=== PATIENT | male | born 1965 | race Caucasian/White ===

== ENCOUNTER 2022-07-27 09:58 | Emergency (ER) | payer BC, OTHER ==
--- NOTE | 2022-07-27 10:01 | ERPHSYRPT ---
- History of Present Illness Time Seen by Provider: 07/27/22 10:01 Historian: patient Exam Limitations: no limitations Physician History: This is a 57-year-old white male who presents with intermittent right flank and right lower back pain for approximately 2 days. At times it is very sharp and intense and other times its a mild achiness but never completely resolved. At the time of arrival, he has an achiness present in the right flank/lower back area. Prior to arrival he had the high intense pain. Patient states that the pain radiates into his right groin at times. He has a history of recurrent urinary tract infections and took Azo product prior to arrival. He has no prior history of ureterolithiasis. He has had no difficulty urinating. Timing/Duration: day(s) (2), intermittent, improved Activities at Onset: none Quality: sharpness, stabbing Abdominal Pain Onset Location: flank (Right flank) Pain Radiation: groin (The right side) Severity of Pain-Max: moderate Severity of Pain-Current: mild Associated Symptoms: denies symptoms Previous symptoms: no prior history Allergies/Adverse Reactions: betamethasone [From Celestone] Allergy (Verified 07/27/22 10:06) Travel Risk - International Travel Have you traveled outside of the country in past 3 weeks: No - Coronavirus Screening Are you exhibiting any of the following symptoms?: No Close contact with a COVID-19 positive Pt in past 14-21 Days: No - Review of Systems Constitutional: No Symptoms Eyes: No Symptoms Ears, Nose, & Throat: No Symptoms Respiratory: No Symptoms Cardiac: No Symptoms Abdominal/Gastrointestinal: No Symptoms Genitourinary Symptoms: Flank Pain (right) Musculoskeletal: No Symptoms Skin: No Symptoms Neurological: No Symptoms Psychological: No Symptoms Endocrine: No Symptoms Hematologic/Lymphatic: No Symptoms Immunological/Allergic: No Symptoms All Other Systems: Reviewed and Negative - Past Medical History Pertinent Past Medical History: Yes - Past Surgical History Past Surgical History: No - Nursing Vital Signs Nursing Vital Signs: Initial Vital Signs Temperature 98 F 07/27/22 10:12 Pulse Rate 97 H 07/27/22 10:12 Respiratory Rate 18 07/27/22 10:12 Blood Pressure 186/104 07/27/22 10:12 O2 Sat by Pulse Oximetry 98 07/27/22 10:12 Pain Scale Pain Intensity 5 - Physical Exam General Appearance: no apparent distress, alert, anxiety Eye Exam: PERRL/EOMI, eyes nml inspection Ears, Nose, Throat Exam: normal ENT inspection, moist mucous membranes Neck Exam: normal inspection, non-tender, supple, full range of motion Respiratory Exam: normal breath sounds, lungs clear, airway intact, No chest tenderness, No respiratory distress Cardiovascular Exam: regular rate/rhythm, normal heart sounds, normal peripheral pulses Gastrointestinal/Abdomen Exam: soft, normal bowel sounds, No tenderness Rectal Exam: not done Back Exam: normal inspection, normal range of motion, CVA tenderness (Right side) Extremity Exam: normal inspection, normal range of motion, pelvis stable Neurologic Exam: alert, oriented x 3, cooperative, vice provost II-XII nml as tested, normal mood/affect, nml cerebellar function, nml station & gait, sensation nml Skin Exam: normal color, warm, dry Lymphatic Exam: No adenopathy SpO2 Interpretation: normal - Course Nursing assessment & vital signs reviewed: Yes Ordered Tests: Active Orders 24 hr Category Date Time Status IV Insertion STAT Care 07/27/22 10:10 Active ABDOMEN AND PELVIS W/0 CONTRAS [CT] Stat Exams 07/27/22 10:11 Completed AMYLASE Stat Lab 07/27/22 10:15 Completed CBC W DIFF Stat Lab 07/27/22 10:15 Completed CMP Stat Lab 07/27/22 10:15 Completed CULTURE,URINE Stat Lab 07/27/22 11:33 Received LIPASE Stat Lab 07/27/22 10:15 Completed UA W/RFX CULTURE Stat Lab 07/27/22 11:33 Completed Medication Summary Discontinued Medications Generic Name Dose Route Start Last Admin Trade Name Jean Marie PRN Reason Stop Dose Admin Sodium Chloride 1,000 mls @ 999 mls/hr 07/27/22 10:10 07/27/22 11:19 Sodium Chloride 0.9% 1000 Ml IV 07/27/22 11:10 Infused .Q1H1M STA Infusion Sodium Chloride Confirm 07/27/22 10:15 Sodium Chloride 0.9% 1000 Ml Administered 07/27/22 10:16 Dose 1,000 mls @ ud .ROUTE .STK-MED ONE Ceftriaxone Sodium/Dextrose 1 g in 50 mls @ 100 mls/hr 07/27/22 11:59 07/27/22 12:04 Rocephin 1 Gm-D5w 50 Ml Bag IV 07/27/22 12:28 100 ml/hr STAT STA 100 mls/hr Administration Ceftriaxone Sodium/Dextrose Confirm 07/27/22 12:02 Rocephin 1 Gm-D5w 50 Ml Bag Administered 07/27/22 12:03 Dose 1 g in 50 mls @ ud IV .STK-MED ONE Ketorolac Tromethamine 30 mg 07/27/22 10:10 07/27/22 10:19 Ketorolac Tromethamine 30 Mg/Ml Inj IV 07/27/22 10:11 30 mg STAT ONE Administration Ketorolac Tromethamine Confirm 07/27/22 10:15 Ketorolac Tromethamine 30 Mg/Ml Inj Administered 07/27/22 10:16 Dose 30 mg .ROUTE .STK-MED ONE Ondansetron HCl 4 mg 07/27/22 10:10 07/27/22 10:19 Ondansetron Hcl 4 Mg/2 Ml Vial IV 07/27/22 10:11 4 mg STAT ONE Administration Ondansetron HCl Confirm 07/27/22 10:15 Ondansetron Hcl 4 Mg/2 Ml Vial Administered 07/27/22 10:16 Dose 4 mg .ROUTE .STK-MED ONE Lab/Rad Data: Laboratory Result Diagrams 07/27/22 10:15 07/27/22 10:15 Laboratory Results 07/27/22 07/27/22 07/27/22 Range/Units 11:33 10:15 10:15 WBC 5.6 (4.0-10.5) x10^3/uL RBC 4.56 (4.1-5.6) x10^6/uL Hgb 14.1 (12.5-18.0) g/dL Hct 41.9 L (42-50) % MCV 91.9 (78-100) fL MCH 30.9 (26-32) pg MCHC 33.7 (32-36) g/dL RDW 12.8 (11.5-14.0) % Plt Count 241 (150-450) x10^3/uL MPV 9.0 (7.5-11.0) fL Gran % 71.0 H (36.0-66.0) % Immature Gran % (Auto) 0.5 H (0.00-0.4) % Nucleat RBC Rel Count 0.0 (0.00-0.1) % Eos # (Auto) 0.03 (0-0.5) x10^3/uL Immature Gran # (Auto) 0.03 (0.00-0.03) x10^3u/L Absolute Lymphs (auto) 1.01 (1.0-4.6) x10^3/uL Absolute Monos (auto) 0.53 (0.0-1.3) x10^3/uL Absolute Nucleated RBC 0.00 (0.00-0.01) x10^3u/L Lymphocytes % 18.1 L (24.0-44.0) % Monocytes % 9.5 (0.0-12.0) % Eosinophils % 0.5 (0.00-5.0) % Basophils % 0.4 (0.0-0.4) % Absolute Granulocytes 3.95 (1.4-6.9) x10^3/uL Basophils # 0.02 (0-0.4) x10^3/uL Sodium 136 L (137-145) mmol/L Potassium 4.3 (3.5-5.1) mmol/L Chloride 105 (98-107) mmol/L Carbon Dioxide 27 (22-30) mmol/L Anion Gap 9.2 (5-15) MEQ/L BUN 14 (9-20) mg/dL Creatinine 1.05 (0.66-1.25) mg/dL Estimated GFR > 60.0 ML/MIN Glucose 105 (74-106) mg/dL Calcium 9.0 (8.4-10.2) mg/dL Total Bilirubin 1.00 (0.2-1.3) mg/dL AST 30 (17-59) U/L ALT 23 (0-50) U/L Alkaline Phosphatase 73 (38-126) U/L Serum Total Protein 7.2 (6.3-8.2) g/dL Albumin 4.3 (3.5-5.0) g/dL Amylase 100 (30-110) U/L Lipase 71 (23-300) U/L Urinalys Dipstick Clnc MAIN LAB Urine Color PROSPER (YELLOW) Urine Appearance CLEAR (CLEAR) Urine pH 5.0 (5-6) Ur Specific [place] 1.020 (1.005-1.025) POC Urine Protein Conf 30 (Negative) Urine Ketones NEGATIVE (NEGATIVE) Urine Nitrite POSITIVE (NEGATIVE) Urine Bilirubin NEGATIVE (NEGATIVE) Urine Urobilinogen 1 (0-1) mg/dL Urine Leukocytes NEGATIVE (NEGATIVE) Urine WBC (Auto) 0-2 (0-5) /HPF Urine RBC (Auto) 0-2 (0-2) /HPF U Epithel Cells (Auto) FEW (FEW) /HPF Urine Bacteria (Auto) FEW (NEGATIVE) /HPF Urine RBC NEGATIVE (0-5) Jayson/ul Urine Mucus (Auto) SLIGHT (NEGATIVE) /HPF Ur Culture Indicated? YES Urine Glucose 100 (NEGATIVE) mg/dL - Progress Progress: improved, pain not gone completely, re-examined Progress Note: 07/27/22 12:31 CAT scan of the abdomen pelvis without contrast shows a nonobstructing right renal punctate calculus. There is a 1.9 cm gallstone present. There is also evidence of a duodenal diverticulum, enlarged prostate gland and degenerative spondylosis Counseled pt/family regarding: lab results, diagnosis, need for follow-up, rad results - Departure Departure Disposition: Home Clinical Impression: UTI (urinary tract infection), Renal calculus, right, Duodenal diverticulum, Cholelithiasis, Spondylosis Condition: Stable Critical Care Time: No Referrals: TINO BLACKMON NP [Primary Care Provider] - Follow up/PCP as directed Additional Instructions: Drink plenty of fluids. Take your antibiotics as prescribed. Use ibuprofen 600 mg orally with food 3 times a day for the next 5 days. May also use plain Tylenol during the day when not taking the [place] 5/325 tablets. Follow-up with your primary care provider for persistent symptoms. Prescriptions: Hydrocodone/APAP 5/325 [[place] 5/325 mg] 1 each PO Q8H PRN PRN #6 tablet MDD 3 PRN Reason: Pain Ciprofloxacin [Cipro 500 MG] 500 mg PO BID #14 tablet
[2022-07-27] MEDS ORDERED: TORAdol 30 mg Injection IV ONE (10:10)
[2022-07-27] MEDS ORDERED: Sodium Chloride 0.9% 1000 ML 1,000 ML IV STA (10:10)
[2022-07-27] MEDS ORDERED: Zofran 4 MG/2 ML VIAL IV ONE (10:10)
[2022-07-27] MEDS ORDERED: Zofran 4 MG/2 ML VIAL ONE (10:15)
[2022-07-27] MEDS ORDERED: Sodium Chloride 0.9% 1000 ML 1,000 ML ONE (10:15)
[2022-07-27] MEDS ORDERED: TORAdol 30 mg Injection ONE (10:15)
[2022-07-27 10:27] LABS: Absolute Neutrophil Ct (ANC) 3.95 x10^3/uL (1.4-6.9); Basophil (Absolute #) 0.02 x10^3/uL (0-0.4); Eosinophil % 0.5 % (0.00-5.0); Eosinophil (Absolute #) 0.03 x10^3/uL (0-0.5); Hematocrit 41.9 % (42-50); Hemoglobin 14.1 g/dL (12.5-18.0); Lymphocyte (Absolute #) 1.01 x10^3/uL (1.0-4.6); Lymphocytes % 18.1 % (24.0-44.0); Mean Cell Volume 91.9 fL (78-100); Mean Corpuscular Hemoglobin 30.9 pg (26-32); Mean Corpuscular Hgb Concent. 33.7 g/dL (32-36); Monocyte (Absolute #) 0.53 x10^3/uL (0.0-1.3); Monocytes % 9.5 % (0.0-12.0); Platelet Count 241 x10^3/uL (150-450); Red Blood Count 4.56 x10^6/uL (4.1-5.6); Red Cell Distribution Width 12.8 % (11.5-14.0); White Blood Count 5.6 x10^3/uL (4.0-10.5)
[2022-07-27 10:37] LABS: ALBUMIN 4.3 g/dL (3.5-5.0); ALKALINE PHOSPHATASE 73 U/L (38-126); AMYLASE 100 U/L (30-110); ANION GAP 9.2 MEQ/L (5-15); BLOOD UREA NITROGEN 14 mg/dL (9-20); CHLORIDE 105 mmol/L (98-107); Carbon Dioxide 27 mmol/L (22-30); Creatinine 1 1.05 mg/dL (0.66-1.25); EST GLOMERULAR FILTRATION RATE > 60.0 ML/MIN; Glucose 105 mg/dL (74-106); LIPASE 71 U/L (23-300); Potassium 4.3 mmol/L (3.5-5.1); SGOT/AST 30 U/L (17-59); SGPT/ALT 23 U/L (0-50); SODIUM 136 mmol/L (137-145); Total Protein 7.2 g/dL (6.3-8.2)
[2022-07-27 11:49] LABS: Appearance CLEAR (CLEAR); Mucus SLIGHT /HPF (NEGATIVE)
[2022-07-27 11:50] LABS: Bilirubin NEGATIVE (NEGATIVE); Dipstick done @ ? MAIN LAB; Glucose 100 mg/dL (NEGATIVE); Ketones NEGATIVE (NEGATIVE); Nitrite POSITIVE (NEGATIVE); Protein,Urine Dip 30 (Negative); RBC NEGATIVE Ery/ul (0-5); Urobilinogen 1 mg/dL (0-1)
[2022-07-27 11:51] LABS: Bacteria FEW /HPF (NEGATIVE); Epithelial Cells FEW /HPF (FEW); RBC 0-2 /HPF (0-2); Urine Cultured Indicated? YES; WBC 0-2 /HPF (0-5)
[2022-07-27] MEDS ORDERED: ROCEPHIN 1 Gm-D5w 50 ml Bag** 1 G/50 ML IVPB IV STA (11:59)
[2022-07-27] MEDS ORDERED: ROCEPHIN 1 Gm-D5w 50 ml Bag** 1 G/50 ML IVPB IV ONE (12:02)
[2022-07-27 12:07] VITALS: PULSE 84
--- NOTE | 2022-07-27 12:25 | XRAY ---
Indication: Right flank pain. Multiple contiguous axial images obtained through the abdomen and pelvis without contrast using renal stone protocol. Comparison: None Lung bases clear. Heart not enlarged. Small hiatal hernia. Right kidney demonstrates nonobstructing punctate calculus. No other calculus or evidence for obstructive uropathy in either system. Noncontrasted stomach and bowel loops appear nonobstructed with normal appendix. Incidental 3.4 cm air-filled descending duodenal diverticulum and scattered colonic diverticulosis without diverticulitis. No free fluid/air. Incidental 1.9 cm gallstone and enlarged prostate gland impressing on the base of the bladder. Remaining liver, pancreas, spleen, adrenal glands, kidneys, ureters, and bladder are unremarkable for noncontrast exam. Mild scattered aortoiliac calcifications without AAA. Osseous structures intact with mild/moderate degenerative changes throughout the thoracolumbar spine. Impression: 1. Nonobstructing right renal punctate calculus. 2. Incidental small hiatal hernia, duodenal diverticulum, colonic diverticulosis, 1.9 cm gallstone, enlarged prostate gland, arteriosclerotic disease, and degenerative spondylosis. 3. Remaining CT abdomen/pelvis without contrast exam is negative.
[2022-07-27 12:51] VITALS: BP 150/87; O2SAT 96
== END 2022-07-27 12:56 | disposition home or self-care (01) ==
LOC: ED 09:58
DX: N39.0 Urinary tract infection, site not specified (principal); N20.0 Calculus of kidney; K57.10 Diverticulosis of small intestine without perforation or abscess without bleeding; K80.20 Calculus of gallbladder without cholecystitis without obstruction; M47.815 Spondylosis without myelopathy or radiculopathy, thoracolumbar region; R10.9 Unspecified abdominal pain; Z79.891 Long term (current) use of opiate analgesic
CPT/HCPCS: 36000; 36415; 74176; 80053; 81015; 82150; 83690; 85025; 87086; 96365; 96374; 96375; 99284; J0696; J1885; J2405